=== PATIENT | male | born 1945 | race Caucasian/White ===

== ENCOUNTER 2023-06-04 19:16 | Inpatient (IN) ==
[2023-06-04] MEDS: Furosemide 40 mg/4 ml IV VIAL IV SLOW PU ONE (19:55)
[2023-06-04] MEDS: Ondansetron 4 mg VIAL 2 MG/ML 2 ml VIAL IV ONE (19:55)
[2023-06-04 20:01] LABS: ABS Basophils 0.1 10^3/uL (0.0-0.1); ABS Eosinophils 0.1 10^3/uL (0.0-0.5); ABS Lymphocytes 0.8 10^3/uL (1.0-4.8); ABS Monocytes 0.7 10^3/uL (0.0-1.1); ABS Neutrophils 7.3 10^3/uL (1.5-7.6); Eosinophil % 0.7 %; Hematocrit 37.8 % (38-53); Hemoglobin 12.7 g/dL (13.2-16.3); Lymphocyte % 8.5 %; Mean Corpuscular Hgb Conc 33.6 g/dL (31-36); Mean Corpuscular Volume 89.1 fL (80-97); Mean Platelet Volume 9.2 fL (7.5-11.2); Platelet Count 153 10^3/uL (150-450); Red Blood Count 4.24 10^6/uL (4.06-5.63); Red Cell Distribution Width 16.1 % (12-17)
[2023-06-04 21:35] LABS: INR 1.13 (0.83-1.13)
[2023-06-04 21:40] LABS: Urine Appearance Turbid; Urine Bilirubin Negative (Negative); Urine Blood 3+ (Negative); Urine Glucose Negative (Negative); Urine Ketones Negative (Negative); Urine Nitrite Negative (Negative); Urine Protein 1+ (>=30 mg/dL) (Negative); Urine Specific Gravity 1.011 (1.002-1.030); Urine Urobilinogen Negative (Negative)
[2023-06-04 21:47] LABS: Urine Bacteria 1+ /HPF (Absent); Urine Red Blood Cell 3+(>10/hpf) /HPF (0-Trace); Urine White Blood Cell 3+(>20/hpf) /HPF (0-Trace)
[2023-06-04 21:50] LABS: Urine Color Yellow
[2023-06-04 21:52] LABS: Albumin 3.7 g/dL (3.2-5.2); Albumin/Globulin Ratio 1.2 (1-3); Calcium 8.6 mg/dL (8.6-10.3); Creatinine, Serum 1.79 mg/dL (0.67-1.17); Magnesium 1.5 mg/dL (1.9-2.7); Potassium 5.2 mmol/L (3.5-5.0); Total Bilirubin 0.6 mg/dL (0.2-1.0); Total Protein 6.7 g/dL (6.4-8.9); eGFR CKD-EPI 38.1 (>60)
[2023-06-04 23:34] LABS: High Sensitivity Troponin 1 Hr 41 pg/mL (<20)
[2023-06-05] MEDS: cefTRIAXone 1 gm/50 mL D5W 1 GM/50 ML BAG IV ONE (01:35)
[2023-06-05] MEDS: Magnesium Sulf 4 GM/100 ML IV 4,000 MG/100 ML BAG IVPB ONE (03:38)
[2023-06-05 04:25] LABS: ABS Basophils 0.1 10^3/uL (0.0-0.1); ABS Lymphocytes 1.3 10^3/uL (1.0-4.8); ABS Monocytes 1.1 10^3/uL (0.0-1.1); ABS Neutrophils 8.6 10^3/uL (1.5-7.6); ABS Nucleated RBC 0.01 10^3/ul; Eosinophil % 0.3 %; Hematocrit 35.3 % (38-53); Hemoglobin 11.6 g/dL (13.2-16.3); Lymphocyte % 11.6 %; Mean Corpuscular Hemoglobin 29.4 pg (27-33); Mean Platelet Volume 9.3 fL (7.5-11.2); Nucleated Red Blood Cells % 0.1 %/100WBC (0.0-0.8); Platelet Count 138 10^3/uL (150-450); Red Blood Count 3.96 10^6/uL (4.06-5.63); Red Cell Distribution Width 15.9 % (12-17); White Blood Count 11.1 10^3/uL (3.6-10.2)
[2023-06-05 04:43] LABS: High Sensitivity Troponin 3 Hr 46 pg/mL (<20)
[2023-06-05 04:58] LABS: Albumin 3.3 g/dL (3.2-5.2); Albumin/Globulin Ratio 1.2 (1-3); Calcium 8.1 mg/dL (8.6-10.3); Creatinine, Serum 2.05 mg/dL (0.67-1.17); Globulin 2.8 g/dL (2-4); Magnesium 1.7 mg/dL (1.9-2.7); Total Bilirubin 0.7 mg/dL (0.2-1.0); Total Protein 6.1 g/dL (6.4-8.9); eGFR CKD-EPI 32.4 (>60)
[2023-06-05] MEDS ORDERED: Dextrose 50% Syringe 50 ml 25 GM/50 ML SYRINGE IV PUSH PRN (07:13)
[2023-06-05] MEDS: Heparin 5000 UNITS/ML 1 mL VIAL SUBCUT SCH (08:32)
[2023-06-05] MEDS: Aspirin EC 81 mg TAB.EC (enteric coated) PO SCH (08:32)
[2023-06-05] MEDS: Furosemide 40 mg/4 ml IV VIAL IV ONE (08:32)
[2023-06-05] MEDS: Magnesium Sulfate 2 gm BAG 2 GM/50 ML BAG IVPB ONE (08:46)
[2023-06-05] MEDS ORDERED: cefTRIAXone 1 gm/50 mL D5W 1 GM/50 ML BAG IV SCH (12:00)
[2023-06-06] MEDS ORDERED: cefTRIAXone 1 gm/50 mL D5W 1 GM/50 ML BAG IV SCH (01:00)
[2023-06-06 05:35] LABS: ABS Lymphocytes 1.1 10^3/uL (1.0-4.8); ABS Monocytes 1.1 10^3/uL (0.0-1.1); ABS Nucleated RBC 0.02 10^3/ul; Eosinophil % 0.2 %; Hematocrit 36.2 % (38-53); Hemoglobin 12.1 g/dL (13.2-16.3); Lymphocyte % 10.8 %; Mean Corpuscular Hemoglobin 29.8 pg (27-33); Mean Corpuscular Hgb Conc 33.5 g/dL (31-36); Mean Corpuscular Volume 88.9 fL (80-97); Mean Platelet Volume 9.3 fL (7.5-11.2); Nucleated Red Blood Cells % 0.1 %/100WBC (0.0-0.8); Platelet Count 127 10^3/uL (150-450); Red Blood Count 4.07 10^6/uL (4.06-5.63); White Blood Count 10.3 10^3/uL (3.6-10.2)
[2023-06-06 05:54] LABS: Creatinine, Serum 2.45 mg/dL (0.67-1.17); Potassium 5.1 mmol/L (3.5-5.0)
[2023-06-06] MEDS: CMCS:Glimepiride 2 mg TAB (NF) PO SCH (11:20)
[2023-06-06] MEDS: cefTRIAXone 1 gm/50 mL D5W 1 GM/50 ML BAG IV SCH (11:21)
[2023-06-06] MEDS: cefTRIAXone 1 gm/50 mL D5W 1 GM/50 ML BAG IV ONE (16:53)
[2023-06-06] MEDS ORDERED: Dextrose 50% Syringe 50 ml 25 GM/50 ML SYRINGE IV PUSH PRN (20:14)
[2023-06-06] MEDS ORDERED: Ondansetron 4 mg VIAL 2 MG/ML 2 ml VIAL IV PRN (20:14)
[2023-06-06] MEDS: Acetaminophen IV 1 GM/100ML 1,000 MG/100 ML BAG IV ONE (20:55)
[2023-06-06] MEDS: Calcium Carb (TUMS) 500 mg CHEW TAB PO PRN (21:02)
[2023-06-06] MEDS: Enoxaparin 40 MG/0.4 ML SYR SUBCUT SCH (21:05)
[2023-06-07] MEDS: Senna TAB 8.6 mg TAB PO PRN (01:06)
[2023-06-07 05:32] LABS: ABS Eosinophils 0.1 10^3/uL (0.0-0.5); ABS Monocytes 0.9 10^3/uL (0.0-1.1); ABS Neutrophils 5.3 10^3/uL (1.5-7.6); ABS Nucleated RBC 0.01 10^3/ul; Eosinophil % 0.8 %; Hematocrit 35.8 % (38-53); Hemoglobin 11.9 g/dL (13.2-16.3); Lymphocyte % 14.2 %; Mean Corpuscular Hemoglobin 29.5 pg (27-33); Mean Corpuscular Hgb Conc 33.1 g/dL (31-36); Mean Platelet Volume 9.3 fL (7.5-11.2); Nucleated Red Blood Cells % 0.1 %/100WBC (0.0-0.8); Platelet Count 126 10^3/uL (150-450); Red Blood Count 4.03 10^6/uL (4.06-5.63); Red Cell Distribution Width 15.9 % (12-17); White Blood Count 7.3 10^3/uL (3.6-10.2)
[2023-06-07 06:34] LABS: Creatinine, Serum 2.04 mg/dL (0.67-1.17); Potassium 4.9 mmol/L (3.5-5.0); eGFR CKD-EPI 32.3 (>60)
[2023-06-07] MEDS: NS 0.9% 1000 ml BAG 1,000 ML IV ONE (12:12)
[2023-06-07] MEDS: Iodixanol (CONTRAST) 320 MG/ML 100 ML SDV IV ONE (14:55)
[2023-06-07] MEDS: cefTRIAXone 2 gm/50 mL D5W 2 GM/50 ML BAG IV SCH (16:24)
[2023-06-07] MEDS ORDERED: Succinylcholine 200 mg VIAL 20 mg/ml 10 ml VIAL (200 mg) ONE (19:40)
[2023-06-07] MEDS ORDERED: Phenylephrine 40 mcg/mL 10mL (400mcg) SYRINGE ONE (19:40)
[2023-06-07] MEDS ORDERED: Propofol 10 MG/ML 20 ML BTL ONE (19:40)
[2023-06-07] MEDS ORDERED: KETAMINE HCL 10 MG/ML 20 ml VIAL (200 MG) ONE (19:43)
[2023-06-07] MEDS ORDERED: fentaNYL 250 mcg/5 ml 50 MCG/ML 5 ml VIAL (250 MCG) ONE (19:43)
[2023-06-07] MEDS ORDERED: Midazolam 2 mg/2 ml VIAL 1 mg/ml 2 ml VIAL (2 mg) ONE (19:44)
[2023-06-07] MEDS ORDERED: Lidocaine 2% JELLY 10 ML JELLY ONE (20:01)
[2023-06-07] MEDS ORDERED: Iohexol 180 (CONTRAST) 10 ML SDV IV ONE (20:01)
[2023-06-07] MEDS ORDERED: Naloxone 0.4 mg VIAL 0.4 mg/ml 1 ml VIAL IV PRN (21:44)
[2023-06-07] MEDS ORDERED: Ondansetron 4 mg VIAL 2 MG/ML 2 ml VIAL IV PRN (21:44)
[2023-06-07] MEDS ORDERED: HYDROcodone/ACETAMIN 5/325 mg TAB PO PRN (21:44)
[2023-06-07] MEDS ORDERED: Metoclopramide 5 MG/ML VIAL (10 mg) IV PRN (21:44)
[2023-06-07] MEDS ORDERED: fentaNYL 100 mcg/2 ml 50 MCG/ML VIAL IV PRN (21:44)
[2023-06-08] MEDS: Morphine 2 MG/ML SYRINGE IV PRN (00:53)
[2023-06-08 06:28] LABS: ABS Eosinophils 0.1 10^3/uL (0.0-0.5); ABS Lymphocytes 0.9 10^3/uL (1.0-4.8); ABS Monocytes 0.9 10^3/uL (0.0-1.1); ABS Neutrophils 3.9 10^3/uL (1.5-7.6); ABS Nucleated RBC 0.01 10^3/ul; Hematocrit 35.9 % (38-53); Hemoglobin 11.5 g/dL (13.2-16.3); Lymphocyte % 15.5 %; Mean Corpuscular Hemoglobin 29.3 pg (27-33); Mean Corpuscular Hgb Conc 32.1 g/dL (31-36); Mean Corpuscular Volume 91.3 fL (80-97); Mean Platelet Volume 9.2 fL (7.5-11.2); Nucleated Red Blood Cells % 0.2 %/100WBC (0.0-0.8); Platelet Count 140 10^3/uL (150-450); Red Blood Count 3.94 10^6/uL (4.06-5.63); Red Cell Distribution Width 15.9 % (12-17); White Blood Count 5.9 10^3/uL (3.6-10.2)
[2023-06-08 06:36] LABS: Calcium 7.8 mg/dL (8.6-10.3); Creatinine, Serum 1.72 mg/dL (0.67-1.17); Potassium 5.1 mmol/L (3.5-5.0); eGFR CKD-EPI 39.7 (>60)
[2023-06-08] MEDS: Lactated Ringers 1000 ml BAG 1,000 ML IV ONE (14:10)
[2023-06-08] MEDS ORDERED: Morphine 2 MG/ML SYRINGE IV PRN (16:05)
[2023-06-08] MEDS: Lactated Ringers 1000 ml BAG 1,000 ML IV SCH (16:48)
[2023-06-08] MEDS: SODIUM ZIRCONIUM CYCLOSILICATE 10 GM PACKET PO ONE (17:24)
[2023-06-09 06:09] LABS: ABS Eosinophils 0.2 10^3/uL (0.0-0.5); ABS Lymphocytes 1.1 10^3/uL (1.0-4.8); ABS Monocytes 0.9 10^3/uL (0.0-1.1); Eosinophil % 3.1 %; Hematocrit 35.1 % (38-53); Hemoglobin 11.6 g/dL (13.2-16.3); Lymphocyte % 17.3 %; Mean Corpuscular Hemoglobin 29.2 pg (27-33); Mean Corpuscular Volume 88.6 fL (80-97); Platelet Count 157 10^3/uL (150-450); Red Blood Count 3.96 10^6/uL (4.06-5.63); Red Cell Distribution Width 15.9 % (12-17); White Blood Count 6.1 10^3/uL (3.6-10.2)
[2023-06-09 06:15] VITALS: BP 129/59
[2023-06-09 06:45] LABS: Calcium 8.2 mg/dL (8.6-10.3); Creatinine, Serum 1.89 mg/dL (0.67-1.17); Potassium 4.8 mmol/L (3.5-5.0); eGFR CKD-EPI 35.4 (>60)
== END 2023-06-09 13:15 | disposition home or self-care (01) | DRG 264 ==
LOC: ED 19:16 → EDHOLD 19:16 → SUATTDRO 06-05 02:11 → MEDTELE 06-05 12:19
PROVIDERS: ADMIT Hospitalist; ATTEND Student in an Organized Health Care Education/Training Program

== ENCOUNTER 2023-06-22 23:58 | Observation (INO) ==
[2023-06-23 01:38] LABS: ABS Basophils 0.1 10^3/uL (0.0-0.1); ABS Eosinophils 0.2 10^3/uL (0.0-0.5); ABS Monocytes 0.9 10^3/uL (0.0-1.1); ABS Neutrophils 6.6 10^3/uL (1.5-7.6); Eosinophil % 1.9 %; Hematocrit 38.4 % (38-53); Hemoglobin 12.6 g/dL (13.2-16.3); Lymphocyte % 20.2 %; Mean Corpuscular Hemoglobin 29.1 pg (27-33); Mean Corpuscular Hgb Conc 32.9 g/dL (31-36); Mean Corpuscular Volume 88.6 fL (80-97); Mean Platelet Volume 8.9 fL (7.5-11.2); Platelet Count 242 10^3/uL (150-450); Red Blood Count 4.34 10^6/uL (4.06-5.63); Red Cell Distribution Width 15.7 % (12-17); White Blood Count 9.8 10^3/uL (3.6-10.2)
[2023-06-23 01:53] LABS: Urine Appearance Extra Turbid; Urine Bilirubin Negative (Negative); Urine Blood 3+ (Negative); Urine Color Yellow; Urine Glucose Negative (Negative); Urine Ketones Negative (Negative); Urine Nitrite Negative (Negative); Urine Protein 1+ (>=30 mg/dL) (Negative); Urine Urobilinogen Negative (Negative); Urine pH 5.5 (5.0-8.0)
[2023-06-23 02:00] LABS: Budding Yeast Present /HPF (Absent); Urine Bacteria Absent /HPF (Absent); Urine Red Blood Cell 3+(>10/hpf) /HPF (0-Trace); Urine Squamous Epithelial Cell Present /HPF (Absent); Urine White Blood Cell 3+(>20/hpf) /HPF (0-Trace)
[2023-06-23 02:02] LABS: High Sens Troponin Baseline 15 pg/mL (<20)
[2023-06-23 02:39] LABS: ALT 33 U/L (7-52); AST 27 U/L (13-39); Albumin 3.7 g/dL (3.2-5.2); Albumin/Globulin Ratio 1.2 (1-3); Alkaline Phosphatase 128 U/L (35-149); Blood Urea Nitrogen 31 mg/dL (6-24); C Reactive Protein 11.81 mg/L (<8.01); CO2 Carbon Dioxide 22 mmol/L (22-32); Calcium 8.7 mg/dL (8.6-10.3); Chloride 107 mmol/L (101-111); Creatinine, Serum 2.13 mg/dL (0.67-1.17); Globulin 3.2 g/dL (2-4); Glucose 113 mg/dL (70-100); Potassium 5.9 mmol/L (3.5-5.0); Sodium 129 mmol/L (135-145); Total Bilirubin 0.6 mg/dL (0.2-1.0); Total Protein 6.9 g/dL (6.4-8.9); eGFR CKD-EPI 30.7 (>60)
[2023-06-23] MEDS: Iodixanol (CONTRAST) 320 MG/ML 100 ML SDV IV ONE (02:56)
[2023-06-23 03:11] LABS: High Sensitivity Troponin 1 Hr 13 pg/mL (<20)
[2023-06-23] MEDS: Lactated Ringers 1000 ml BAG 1,000 ML IV ONE (06:11)
[2023-06-23] MEDS: Furosemide 40 mg/4 ml IV VIAL IV ONE (06:11)
[2023-06-23] MEDS ORDERED: Polyethylene Glycol 3350 17 GM PACKET PO PRN (07:48)
[2023-06-23] MEDS: cefTRIAXone 1 gm/50 mL D5W 1 GM/50 ML BAG IV ONE (08:03)
[2023-06-23] MEDS: Enoxaparin 40 MG/0.4 ML SYR SUBCUT SCH (08:55)
[2023-06-23 18:13] LABS: Urine Appearance No Cx Turbid (Clear); Urine Bilirubin No Culture Negative (Negative); Urine Blood No Culture 2+ (Negative); Urine Color No Culture Light-Yellow; Urine Glucose No Culture Negative (Negative); Urine Ketones No Culture Negative (Negative); Urine Leukocytes No Culture 500 (3+) Leu/uL (Negative); Urine Nitrite No Culture Negative (Negative); Urine Protein No Culture Trace (Negative); Urine Specific Gravity No Cx 1.018 (1.002-1.030); Urine Urobilinogen No Cx Negative (Negative)
[2023-06-23 18:20] LABS: Ur Squamous Epithelial No Cx Present /HPF (Absent); Urine Bacteria No Culture Absent /HPF (Absent); Urine Red Blood Cell No Cult 3+(>10/hpf) /HPF (0-Trace); Urine White Blood Cell No Cult 3+(>20/hpf) /HPF (0-Trace)
[2023-06-24 05:52] LABS: Calcium 8.6 mg/dL (8.6-10.3); Creatinine, Serum 1.99 mg/dL (0.67-1.17); Potassium 5.7 mmol/L (3.5-5.0); eGFR CKD-EPI 33.3 (>60)
[2023-06-24] MEDS: CMCS:Glimepiride 2 mg TAB (NF) PO SCH (08:35)
[2023-06-24] MEDS: SODIUM ZIRCONIUM CYCLOSILICATE 10 GM PACKET PO ONE (08:35)
[2023-06-24] MEDS: cefTRIAXone 1 gm/50 mL D5W 1 GM/50 ML BAG IV SCH (10:10)
[2023-06-24] MEDS: SODIUM ZIRCONIUM CYCLOSILICATE 10 GM PACKET PO SCH (14:31)
[2023-06-24] MEDS: Ondansetron 4 mg VIAL 2 MG/ML 2 ml VIAL IV PRN (16:13)
[2023-06-24 19:39] LABS: Calcium 8.7 mg/dL (8.6-10.3); Creatinine, Serum 2.14 mg/dL (0.67-1.17); Potassium 5.2 mmol/L (3.5-5.0); eGFR CKD-EPI 30.5 (>60)
[2023-06-24] MEDS: Senna TAB 8.6 mg TAB PO PRN (20:07)
[2023-06-25 05:13] LABS: Hematocrit 35.4 % (38-53); Hemoglobin 11.7 g/dL (13.2-16.3); Mean Corpuscular Hemoglobin 29.1 pg (27-33); Mean Corpuscular Hgb Conc 33.1 g/dL (31-36); Mean Corpuscular Volume 87.9 fL (80-97); Mean Platelet Volume 9.1 fL (7.5-11.2); Platelet Count 190 10^3/uL (150-450); Red Blood Count 4.03 10^6/uL (4.06-5.63); Red Cell Distribution Width 15.8 % (12-17); White Blood Count 6.2 10^3/uL (3.6-10.2)
[2023-06-25 05:30] LABS: Calcium 8.7 mg/dL (8.6-10.3); Creatinine, Serum 2.2 mg/dL (0.67-1.17); Magnesium 1.7 mg/dL (1.9-2.7); Potassium 4.8 mmol/L (3.5-5.0); eGFR CKD-EPI 29.5 (>60)
[2023-06-25] MEDS: Magnesium Sulfate 2 gm BAG 2 GM/50 ML BAG IVPB ONE (12:16)
[2023-06-25 13:28] VITALS: BP 110/59
== END 2023-06-25 19:35 | disposition home or self-care (01) ==
LOC: ED 23:58 → EDHOLD 23:58 → SUATTDRO 06-23 07:50 → MED 06-23 10:44
PROVIDERS: ADMIT Internal Medicine; ATTEND Internal Medicine

== ENCOUNTER 2023-09-12 12:20 | Observation (INO) ==
[~2023-09-12 12:20] MED LIST: Buffered Lidocaine 1% SYRIN 1 ml INTRADERM ONE; Lactated Ringers 1000 ml BAG 1,000 ML IV SCH; Naloxone 0.4 mg VIAL 0.4 mg/ml 1 ml VIAL IV PRN; fentaNYL 100 mcg/2 ml 50 MCG/ML VIAL IV PRN
[2023-09-12] MEDS ORDERED: cefTRIAXone 1 gm/50 mL D5W 1 GM/50 ML BAG IV ONE (13:40)
[2023-09-12] MEDS ORDERED: Midazolam 2 mg/2 ml VIAL 1 mg/ml 2 ml VIAL (2 mg) ONE (16:12)
[2023-09-12] MEDS ORDERED: Lidocaine 2% PF 5 ML VIAL ONE (16:12)
[2023-09-12] MEDS ORDERED: fentaNYL 100 mcg/2 ml 50 MCG/ML VIAL ONE (16:12)
[2023-09-12] MEDS ORDERED: Iohexol 180 (CONTRAST) 10 ML SDV IV ONE (16:17)
[2023-09-12] MEDS ORDERED: KETAMINE HCL 10 MG/ML 20 ml VIAL (200 MG) ONE (16:34)
[2023-09-12] MEDS ORDERED: Dextrose 50% Syringe 50 ml 25 GM/50 ML SYRINGE IV PUSH PRN (16:56)
[2023-09-12 17:37] LABS: Rapid COVID-19 Molecular Undetected (Undetected)
[2023-09-12] MEDS: Furosemide 40 mg/4 ml IV VIAL IV SLOW PU ONE (20:17)
[2023-09-13 03:01] LABS: High Sensitivity Troponin 1 Hr 115 pg/mL (<20)
[2023-09-13 06:18] LABS: Calcium 7.8 mg/dL (8.6-10.3); Creatinine, Serum 3.58 mg/dL (0.67-1.17); Magnesium 1.5 mg/dL (1.9-2.7); Potassium 4.5 mmol/L (3.5-5.0); eGFR CKD-EPI 16.5 (>60)
[2023-09-13] MEDS: Magnesium Sulfate 2 gm BAG 2 GM/50 ML BAG IVPB ONE (09:31)
[2023-09-13 10:42] VITALS: BP 92/44
[2023-09-13] MEDS: Magnesium Sulfate IV 1GM/100ML 1 GM/100 ML BAG IV ONE (11:12)
== END 2023-09-13 14:19 | disposition home or self-care (01) ==
LOC: OR 12:20 → SSU 12:20 → SUATTDRO 16:21
PROVIDERS: ADMIT Urology; ATTEND Student in an Organized Health Care Education/Training Program

== ENCOUNTER 2023-09-13 16:00 | Inpatient (IN) ==
[2023-09-13 16:37] LABS: ABS Basophils 0.1 10^3/uL (0.0-0.1); ABS Eosinophils 0.3 10^3/uL (0.0-0.5); ABS Lymphocytes 0.9 10^3/uL (1.0-4.8); ABS Monocytes 1.4 10^3/uL (0.0-1.1); ABS Neutrophils 5.3 10^3/uL (1.5-7.6); ABS Nucleated RBC 0.01 10^3/ul; Eosinophil % 3.2 %; Hematocrit 32.4 % (38-53); Hemoglobin 10.4 g/dL (13.2-16.3); Lymphocyte % 11.1 %; Mean Corpuscular Hemoglobin 28.3 pg (27-33); Mean Corpuscular Volume 88.2 fL (80-97); Nucleated Red Blood Cells % 0.1 %/100WBC (0.0-0.8); Platelet Count 197 10^3/uL (150-450); Red Blood Count 3.67 10^6/uL (4.06-5.63); Red Cell Distribution Width 17.9 % (12-17)
[2023-09-13 16:52] LABS: INR 1.05 (0.83-1.13)
[2023-09-13 17:23] LABS: Albumin 3.2 g/dL (3.2-5.2); Albumin/Globulin Ratio 1.2 (1-3); Calcium 8.1 mg/dL (8.6-10.3); Creatinine, Serum 4.09 mg/dL (0.67-1.17); Globulin 2.7 g/dL (2-4); Potassium 4.7 mmol/L (3.5-5.0); Total Protein 5.9 g/dL (6.4-8.9)
[2023-09-13] MEDS: NS 0.9% 250 ml 250 ML IV ONE (17:46)
[2023-09-13] MEDS: cefTRIAXone 1 gm/50 mL D5W 1 GM/50 ML BAG IV ONE (17:51)
[2023-09-13 17:54] LABS: High Sensitivity Troponin 1 Hr 99 pg/mL (<20)
[2023-09-13 19:25] LABS: Urine Appearance Extra Turbid; Urine Bilirubin Negative (Negative); Urine Blood 3+ (Negative); Urine Glucose 1+ (>=70 mg/dL) (Negative); Urine Ketones Negative (Negative); Urine Nitrite Negative (Negative); Urine Protein 2+ (>=100 mg/dL) (Negative); Urine Specific Gravity 1.019 (1.002-1.030); Urine Urobilinogen Negative (Negative)
[2023-09-13 19:26] LABS: Urine Bacteria 2+ /HPF (Absent); Urine Red Blood Cell 3+(>10/hpf) /HPF (0-Trace); Urine White Blood Cell 3+(>20/hpf) /HPF (0-Trace)
[2023-09-13 19:58] LABS: Urine Color Light-Red
[2023-09-13] MEDS: Lactated Ringers 1000 ml BAG 1,000 ML IV ONE (20:00)
[2023-09-14] MEDS: Bumetanide IV 0.25 MG/ML 4 ml VIAL (1 mg) IV SLOW PU ONE ×2 (01:55→06:56)
[2023-09-14] MEDS: Enoxaparin 40 MG/0.4 ML SYR SUBCUT SCH (01:55)
[2023-09-14] MEDS ORDERED: NS 0.9% 500 ml BAG 500 ML IV SCH (02:00)
[2023-09-14] MEDS: Albuterol/Ipratropium NEB.SOL (2.5/0.5 MG) 3 ML NEB.SOLN INH ONE (03:41)
[2023-09-14] MEDS ORDERED: Triamcinolone 0.025% OINT 15 GM TUBE TOPICAL PRN (06:22)
[2023-09-14] MEDS: Heparin 5000 UNITS/ML 1 mL VIAL SUBCUT SCH (06:30)
[2023-09-14 08:56] LABS: Hematocrit 33.2 % (38-53); Hemoglobin 10.8 g/dL (13.2-16.3); Mean Corpuscular Hemoglobin 28.6 pg (27-33); Mean Corpuscular Hgb Conc 32.3 g/dL (31-36); Mean Corpuscular Volume 88.3 fL (80-97); Mean Platelet Volume 9.5 fL (7.5-11.2); Platelet Count 206 10^3/uL (150-450); Red Blood Count 3.76 10^6/uL (4.06-5.63); Red Cell Distribution Width 18.1 % (12-17); White Blood Count 7.2 10^3/uL (3.6-10.2)
[2023-09-14 09:26] LABS: ABS Basophils 0.1 10^3/uL (0.0-0.1); ABS Eosinophils 0.2 10^3/uL (0.0-0.5); ABS Lymphocytes 0.7 10^3/uL (1.0-4.8); ABS Monocytes 1.2 10^3/uL (0.0-1.1); ABS Neutrophils 5.2 10^3/uL (1.5-7.6); ABS Nucleated RBC 0.01 10^3/ul; Eosinophil % 2.2 %; Lymphocyte % 9.5 %; Nucleated Red Blood Cells % 0.1 %/100WBC (0.0-0.8); RBC Morphology Normal (Normal)
[2023-09-14 09:32] LABS: Albumin 3.2 g/dL (3.2-5.2); Albumin/Globulin Ratio 1.1 (1-3); Creatinine, Serum 4.65 mg/dL (0.67-1.17); Globulin 2.9 g/dL (2-4); Magnesium 1.9 mg/dL (1.9-2.7); Total Protein 6.1 g/dL (6.4-8.9)
[2023-09-14] MEDS: Norepinephrine 4 MG/250mL D5W 4,000 MCG/250 ML BAG IV SCH (10:33)
[2023-09-14 11:45] VITALS: BP 98/73
== END 2023-09-14 11:44 | disposition short-term general hospital (02) | DRG 307 ==
LOC: ED 16:00 → EDHOLD 16:00 → SUATTDRO 09-14 00:19 → MEDTELE 09-14 08:00 → EDHOLD 09-14 10:24
PROVIDERS: ADMIT Internal Medicine; ATTEND Student in an Organized Health Care Education/Training Program